=== PATIENT | female | born 1935 | race Hispanic/Latino ===

== ENCOUNTER 2017-06-30 22:32 | Observation (INO) | payer MEDICARE ==
[~2017-06-30] VITALS: Ht 139.7 cm; Wt 59.0 kg
[~2017-06-30 22:32] MED LIST: LEVAQUIN500 MG PO
[2017-06-30] MEDS ORDERED: ATORVASTATIN CA40 MG PO (22:57)
[2017-06-30] MEDS ORDERED: LEVOTHYROXIN75 MCG PO (22:57)
[2017-06-30] MEDS ORDERED: VITAMIN D32000 UNI2 PO (22:59)
[2017-06-30] MEDS ORDERED: ISOSORB MONO30 MG PO (22:59)
[2017-06-30] MEDS ORDERED: BIOTIN PO (23:00)
[2017-06-30] MEDS ORDERED: [UNRECOGNIZED DRUG - OTHER] PO (23:00)
[2017-06-30 23:22] LABS: IMMATURE GRANULOCYTES 0.5 % (0.0-1.0); MEAN CELL VOLUME 92.6 fL CALC (80.0-100.0); MEAN CORPUSCULAR HGB 31.1 pG CALC (26.0-32.0); MEAN CORPUSCULAR HGB CONC 33.5 g/L CALC (32.0-36.0); NEUT# 3.62 thou/uL (2.00-7.15); RED BLOOD COUNT 3.8 mill/uL (4.20-5.60); RED CELL DISTRI WIDTH 14.6 % (11.5-15.5)
[2017-06-30 23:25] LABS: HEMATOCRIT 35.2 % (37.0-47.0); HEMOGLOBIN 11.8 g/dl (12.0-16.0)
[2017-06-30 23:31] LABS: ALKALINE PHOSPHATASE 84 u/l (38-126); AMYLASE 77 u/l (30-110); ANION GAP 19 (6-22 (CALC)); BILIRUBIN, TOTAL 0.5 mg/dL (0.0-1.4); BUN 27 mg/dL (8-23); BUN/CREATININE RATIO 23 (12-20 (CALC)); CARBON DIOXIDE 23 mmol/l (22-30); CHLORIDE 102 mmol/l (95-108); CREATININE 1.2 mg/dL (0.5-1.0); GFR 43 ML/MIN (>=60 (CALC)); GFR FOR AFR.AMER. 52 ML/MIN (>=60 (CALC)); LIPASE 109 u/l (23-300); SGOT/AST 22 u/l (9-36); SGPT/ALT 28 u/l (11-66); SODIUM 140 mmol/l (137-146); TOTAL PROTEIN 7.1 g/dL (6.3-8.2)
[2017-06-30 23:32] LABS: ALBUMIN 3.6 g/dL (3.2-5.0)
[2017-06-30 23:43] LABS: MYOGLOBIN 39 ng/mL (0 - 62)
[2017-07-01 00:06] LABS: URINE BILIRUBIN - DIPSTICK NEGATIVE (NEGATIVE); URINE BLOOD DIPSTICK NEGATIVE (NEGATIVE); URINE COLOR YELLOW; URINE GLUCOSE - DIPSTICK NEGATIVE (NEGATIVE); URINE KETONE NEGATIVE (NEGATIVE); URINE LEUK ESTERASE NEGATIVE (NEGATIVE); URINE NITRITE - DIPSTICK NEGATIVE (Negative); URINE PROTEIN - DIPSTICK NEGATIVE (NEG-TRACE); URINE SPECIFIC GRAVITY <=1.005; URINE UROBILINOGEN - DIPSTICK 0.2 E.U./dL (0.2)
[2017-07-01 00:07] LABS: URINE CLARITY CLEAR
[2017-07-01 01:00] VITALS: BP 156/72
[2017-07-01 04:25] VITALS: BP 158/73
[2017-07-01 07:39] VITALS: BP 183/85
[2017-07-01 08:38] VITALS: BP 165/66
[2017-07-01 11:02] VITALS: BP 150/58
== END 2017-07-01 13:07 | disposition home or self-care (01) ==
LOC: ED 22:32 → ED-I 07-01 00:20 → ED 07-01 00:37 → MS2 07-01 00:38
PROVIDERS: Emergency Medicine; ADMIT Internal Medicine; ATTEND Internal Medicine
DX: R07.9 Chest pain, unspecified (principal); I12.9 Hypertensive chronic kidney disease with stage 1 through stage 4 chronic kidney disease, or unspecified chronic kidney disease; E11.22 Type 2 diabetes mellitus with diabetic chronic kidney disease; N18.9 Chronic kidney disease, unspecified; E78.00 Pure hypercholesterolemia, unspecified; J44.9 Chronic obstructive pulmonary disease, unspecified; E03.9 Hypothyroidism, unspecified; K21.9 Gastro-esophageal reflux disease without esophagitis; J84.9 Interstitial pulmonary disease, unspecified; Z90.2 Acquired absence of lung [part of]; R06.02 Shortness of breath

== ENCOUNTER 2021-06-07 14:50 | Emergency (ER) | payer MEDICARE ==
[~2021-06-07] VITALS: Ht 139.7 cm; Wt 44.1 kg
[~2021-06-07 14:50] MED LIST changes: +ATORVASTATIN CA40 MG PO; +BIOTIN PO; +ISOSORB MONO30 MG PO; +LEVOTHYROXIN75 MCG PO; +VITAMIN D32000 UNI2 PO; +[UNRECOGNIZED DRUG - OTHER] PO
[2021-06-07 15:52] VITALS: BP 148/64
[2021-06-07 16:00] VITALS: BP 149/70
[2021-06-07 16:16] VITALS: BP 149/70
== END 2021-06-07 19:45 | disposition home or self-care (01) ==
LOC: ED 14:50
DX: S70.02XA Contusion of left hip, initial encounter (principal); S20.211A Contusion of right front wall of thorax, initial encounter; S20.229A Contusion of unspecified back wall of thorax, initial encounter; S30.0XXA Contusion of lower back and pelvis, initial encounter; I10 Essential (primary) hypertension; E03.9 Hypothyroidism, unspecified; W18.39XA Other fall on same level, initial encounter; Y92.22 Religious institution as the place of occurrence of the external cause; Z90.2 Acquired absence of lung [part of]; Z95.5 Presence of coronary angioplasty implant and graft

== ENCOUNTER 2021-12-04 14:46 | Emergency (ER) | payer MEDICARE ==
[2021-12-04 15:19] LABS: HEMATOCRIT 36.6 % (37.0-47.0); HEMOGLOBIN 11.3 g/dl (12.0-16.0); IMMATURE GRANULOCYTES 2.9 % (0.0-5.0); MEAN CORPUSCULAR HGB 30.6 pG CALC (26.0-32.0); MEAN CORPUSCULAR HGB CONC 30.9 g/dL CAL (32.0-36.0); NEUT# 2.69 thou/uL (2.00-7.15); RED BLOOD COUNT 3.69 mill/uL (4.20-5.60)
[2021-12-04 15:27] LABS: ALBUMIN 3.2 g/dL (3.2-5.0); BILIRUBIN, TOTAL 0.6 mg/dL (0.0-1.4); CREATININE 1.3 mg/dL (0.5-1.0)
[2021-12-04 15:30] LABS: POTASSIUM 4.9 mmol/l (3.5-5.1)
[2021-12-04 15:33] LABS: MEAN CELL VOLUME 99.2 fL CALC (80.0-100.0)
== END 2021-12-04 17:29 | disposition expired ==
LOC: ED 14:46
PROVIDERS: Emergency Medicine
PROC: 5A12012 Performance of Cardiac Output, Single, Manual (ICD-10-PCS; principal; 2021-12-04)
DX: I46.9 Cardiac arrest, cause unspecified (principal); I10 Essential (primary) hypertension; E03.9 Hypothyroidism, unspecified; Z95.5 Presence of coronary angioplasty implant and graft; Z90.2 Acquired absence of lung [part of]; Z66 Do not resuscitate